=== PATIENT | female | born 1980 | race Caucasian/White ===

== ENCOUNTER 2016-11-10 11:50 | Emergency (ER) | payer OTHER ==
[2016-11-10 13:52] VITALS: BP 118/65
[2016-11-10] MEDS ORDERED: Tetan/Diph/Pertus SYR(Tdap)* 0.5 ML SYR(BOOSTRIX) use SYR IM ONE (14:07)
--- NOTE | 2016-11-10 14:21 | UC ---
Bite Injury/Animal HPI - HPI Summary HPI Summary: While approaching house for an inspection today, dog tied up on the porch ran at patient and bit R hip area. Teeth did not appear to tai clothing (there are no holes) and skin is intact with bruising and abrasions. 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 - History of Current Complaint Chief Complaint: UCBiteInjury Stated Complaint: DOG BITE Time Seen by Provider: 11/10/16 13:52 Hx Obtained From: Patient Hx Last Menstrual Period: 10/27/16 ?: No Severity Currently: Mild Severity Initially: Mild Onset/Duration: Sudden Onset Type of Bite: Pet Has Animal Been Immunized?: Unknown Character: Abrasion/Laceration Aggravating Factor(s): Nothing Alleviating Factor(s): Nothing Associated Signs And Symptoms: Positive: Negative Hx of Bite: Provoked by: - approaching house Animal Available for Observation: Yes Animal Control Notified: Yes - Allergies/Home Medications Allergies/Adverse Reactions: Allergies Allergy/AdvReac Type Severity Reaction Status Date / Time No Known Allergies Allergy Verified 11/08/15 17:22 Home Medications: Home Medications NK [No Home Medications Reported] 11/10/16 [History Confirmed 11/10/16] PMH/Surg Hx/FS Hx/Imm Hx Respiratory History Of: Reports: Bronchitis - IN THE PAST - Surgical History Surgical History: None - Family History Known Family History: Negative: Blood Disorder - Social History Occupation: Employed Full-time Alcohol Use: Occasionally Substance Use Type: None Smoking Status (MU): Never Smoked Tobacco Have You Smoked in the Last Year: No Review of Systems Constitutional: Negative Skin: Bruising Eyes: Negative ENT: Negative Respiratory: Negative Cardiovascular: Negative Gastrointestinal: Negative Genitourinary: Negative Motor: Negative Neurovascular: Negative Musculoskeletal: Negative Neurological: Negative Psychological: Negative All Other Systems Reviewed And Are Negative: Yes Physical Exam Triage Information Reviewed: Yes Appearance: Well-Appearing, No Pain Distress, Well-Nourished Vital Signs: Initial Vital Signs Temp 99.3 F 11/10/16 13:45 Pulse 51 11/10/16 13:45 Resp 18 11/10/16 13:45 BP 118/65 11/10/16 13:45 Pulse Ox 95 11/10/16 13:45 Vital Signs Reviewed: Yes Eye Exam: Normal Eyes: Positive: Conjunctiva Clear ENT Exam: Normal ENT: Positive: Normal ENT inspection, Hearing grossly normal, Pharynx normal, TMs normal Dental Exam: Normal Neck exam: Normal Neck: Positive: Supple, Nontender, No Lymphadenopathy Respiratory Exam: Normal Respiratory: Positive: Chest non-tender, Lungs clear, Normal breath sounds, No respiratory distress, No accessory muscle use Cardiovascular Exam: Normal Cardiovascular: Positive: RRR, No Murmur Musculoskeletal Exam: Normal Neurological Exam: Normal Neurological: Positive: Alert Psychological Exam: Normal Skin Exam: Other - 3-4 cm bruise/abrasion R hip Bite Injury Course/Dx - Differential Dx/Diagnosis Provider Diagnoses: dog bite/crush injury to R hip, no skin penetration Discharge - Discharge Plan Condition: Stable Disposition: HOME Patient Education Materials: Crush Injury (ED) Forms: *Work Release Referrals: No Primary Care Phys,NOPCP [Primary Care Provider] - Additional Instructions: Because it appears that the dog's teeth did not tai through your clothing, there is almost no risk of infection or rabies. The [facility] Department should follow up with the dog supervisor grading. Please come back if you have any new or worrisome symptoms.
== END 2016-11-10 14:51 | disposition home or self-care (01) ==
LOC: UCEAST 11:50
DX: S70.271A Other superficial bite of hip, right hip, initial encounter (principal); W54.0XXA Bitten by dog, initial encounter; Y93.9 Activity, unspecified; Y99.0 Civilian activity done for income or pay
CPT/HCPCS: 90471; 90715; 99211; G0463